=== PATIENT | female | born 1995 | race Caucasian/White ===

== ENCOUNTER 2017-08-21 19:41 | Emergency (ER) ==
[2017-08-21 19:49] VITALS: BP 123/75; TEMP 99.5; BMI 21.2
[2017-08-21] MEDS ORDERED: SODIUM CHLORIDE 1,000 ML IV STA (19:56)
--- NOTE | 2017-08-21 20:00 | ED.PDOC ---
General ED Provider: Dr. TRELL CALLE Chief Complaint: Abdominal Pain Stated Complaint: hAVING RT LOWER ABDOMEN PAIN 3-4 DAYS, GRADUALLY GETTING WORSE , HAS SOME NAUSE TODAY. fEVER AT HOME 102 Time Seen by Physician: 19:58 Mode of Arrival: Walk-In Information Source: Patient, Family Primary Care Provider: DONNA CRANE Nursing and Triage Documentation Reviewed and Agree: Yes Reviewed sepsis parameters & appropriate labs ordered?: Yes System Inflammatory Response Syndrome: Not Applicable Sepsis Protocol: For patient's 13 years and over: Temp is 96.8 and below OR 101 and greater Pulse >90 BPM Resp >20/minute Acutely Altered Mental Status Are patient's symptoms suggestive of a new infection, such as: -Pneumonia -Skin, Soft Tissue -Endocarditis -UTI -Bone, Joint Infection -Implantable Device -Acute Abdominal Infection -Wound Infection -Meningitis -Blood Stream Catheter Infection -Unknown GI Complaint Exam - Abdominal Pain Complaint/Exam Onset: Gradual Symptoms Are: Still present Timing: Constant Initial Severity: Moderate Current Severity: Moderate Location of Pain: RLQ Radiates To: Reports: Back, Flank Character: Reports: Dull, Aching Aggravating: Reports: Movement, Food Alleviating: Reports: None Associated Signs and Symptoms: Reports: Urinary frequency, Nausea, Vomiting. Denies: Diaphoresis, Fever, Cough, Chest pain, Dizziness, Back pain, Constipation, Blood in stool, Dysuria, Decreased urine output, Decreased appetite, Vaginal bleeding, Vaginal discharge, Diarrhea, Sore throat, Decreased activity Related History: Reports: Similar episode : 0 Para: 0 Hx Total # of Abortions (Spontaneous & Elective): 0 AAA Risk Factors: Reports: None Cardiac Risk Factors: Reports: None Ectopic Risk Factors: Reports: None Ovarian Torsion Risk Factors: Reports: None Surgical Obstruction Risk Factors: Reports: None Related Surgical History: Reports: None Patient Rh Status: Unknown Abdominal Findings: Absent: Pulsatile mass, Abdominal distention, Unequal femoral pulses Differential Diagnoses: Appendicitis, UTI Review of Systems - Review Of Systems Constitutional: Reports: Fever Eyes: Reports: No symptoms Ears, Nose, Mouth, Throat: Reports: No symptoms Respiratory: Reports: No symptoms Cardiac: Reports: No symptoms GI: Reports: Abdominal pain : Reports: No symptoms Musculoskeletal: Reports: No symptoms Skin: Reports: No symptoms Neurological: Reports: No symptoms Endocrine: Reports: No symptoms Hematologic/Lymphatic: Reports: No symptoms All Other Systems: Reviewed and Negative Past Medical History - Past Medical History Previously Healthy: Yes Endocrine: Reports: None Cardiovascular: Reports: None Respiratory: Reports: None Hematological: Reports: None Gastrointestinal: Reports: None Genitourinary: Reports: None Neuro/Psych: Reports: None Musculoskeletal: Reports: None Cancer: Reports: None Last Menstrual Period: CURRENT - Surgical History General Surgical History: Reports: None - Family History Family History: Reports: None - Social History Smoking Status: Never smoker Hx Substance Use: No Alcohol Screening: None - Immunizations Tetanus Shot up to Date: Yes Physical Exam - Physical Exam Appearance: Ill-appearing, Thin Eyes: KAITLIN, EOMI, Conjunctiva clear ENT: Ears normal, Nose normal, Oropharynx normal Respiratory: Airway patent, Breath sounds clear, Breath sounds equal, Respirations nonlabored Cardiovascular: RRR, Pulses normal, No rub, No murmur GI/: Soft, Tender Musculoskeletal: Normal strength, ROM intact, No edema, No calf tenderness Skin: Warm, Dry, Normal color Neurological: Sensation intact, Motor intact, Reflexes intact, Cranial nerves intact, Alert, Oriented Psychiatric: Affect appropriate, Mood appropriate Interpretation - Radiology Interpretation Radiology Interpretation By: Radiologist Radiology Results: Positive Exam Interpreted: CT Scan Critical Care Note - Critical Care Note Total Time (mins): 20 Course - Course Hematology/Chemistry: 08/21/17 20:05 08/21/17 20:05 Orders, Labs, Meds: Lab Review 08/21/17 08/21/17 08/21/17 20:05 20:05 20:20 WBC 9.78 RBC 3.88 L Hgb 12.0 Hct 34.6 L MCV 89.2 MCH 30.9 MCHC 34.7 RDW Coeff of Gilberto 12.2 Plt Count 193 Immature Gran % (Auto) 0.3 Neut % (Auto) 67.8 Lymph % (Auto) 24.4 Sutton % (Auto) 6.1 Eos % (Auto) 1.2 Baso % (Auto) 0.2 Immature Gran # (Auto) 0.0 Neut # 6.6 Lymph # 2.4 Sutton # 0.6 Eos # 0.1 Baso # 0.0 Sodium 139 Potassium 3.5 Chloride 105 Carbon Dioxide 23 Anion Gap 14.5 BUN 7 Creatinine 0.70 Estimated GFR (MDRD) 107.00 BUN/Creatinine Ratio 10.00 Glucose 149 H Calcium 9.0 Total Bilirubin 0.3 AST 13 L ALT 10 L Alkaline Phosphatase 57 Total Protein 7.0 Albumin 3.1 L Globulin 3.9 Albumin/Globulin Ratio 0.79 Urine Color Urine Clarity Urine pH Ur Specific Jeremiah Urine Protein Urine Glucose (UA) Urine Ketones Urine Blood Urine Nitrite Urine Bilirubin Urine Urobilinogen Ur Leukocyte Esterase Urine Microscopic RBC Urine Microscopic WBC Ur Squamous Epith Cells Urine Bacteria Urine Mucus Urine Test Negative 08/21/17 20:32 WBC RBC Hgb Hct MCV MCH MCHC RDW Coeff of Gilberto Plt Count Immature Gran % (Auto) Neut % (Auto) Lymph % (Auto) Sutton % (Auto) Eos % (Auto) Baso % (Auto) Immature Gran # (Auto) Neut # Lymph # Sutton # Eos # Baso # Sodium Potassium Chloride Carbon Dioxide Anion Gap BUN Creatinine Estimated GFR (MDRD) BUN/Creatinine Ratio Glucose Calcium Total Bilirubin AST ALT Alkaline Phosphatase Total Protein Albumin Globulin Albumin/Globulin Ratio Urine Color Yellow Urine Clarity Clear Urine pH 6.0 Ur Specific Jeremiah 1.015 Urine Protein Negative Urine Glucose (UA) Negative Urine Ketones Trace Urine Blood 2+ Urine Nitrite Negative Urine Bilirubin Negative Urine Urobilinogen 1.0 Ur Leukocyte Esterase Trace Urine Microscopic RBC 5-10 Urine Microscopic WBC 20-30 Ur Squamous Epith Cells 2-5 Urine Bacteria 3+ Urine Mucus Trace Urine Test Orders Category Date Time Status NPO REMINDER: IMAGING ONCE CARE 08/21/17 19:57 Completed ED IV/MEDIPORT/POWERPORT .ONCE EMERGENCY 08/21/17 19:56 Active CBC W/ AUTO DIFF Stat LAB 08/21/17 20:05 Completed COMPREHENSIVE METABOLIC PANEL Stat LAB 08/21/17 20:05 Completed URINALYSIS C & S IF INDICATED Stat LAB 08/21/17 20:32 Completed URINE CULTURE Stat LAB 08/21/17 20:32 Received URINE Stat LAB 08/21/17 20:20 Completed 0.9 % Sodium Chloride [Saline Flush] MEDS 08/21/17 19:56 Ordered 1 syr IVF PRN PRN Ceftriaxone Sodium [Rocephin] MEDS 08/21/17 21:21 Stat 1 gm IM ONCE STA Lidocaine HCl/Pf [Lidocaine HCl 1% Sdv] MEDS 08/21/17 21:21 Stat 5 ml SUBCUT ONCE STA Sodium Chloride 0.9% [Sodium Chloride] 1,000 ml MEDS 08/21/17 19:56 Active IV 100 mls/hr CT ABDOMEN/PELVIS W/WO CONTRAS Stat RADS 08/21/17 19:56 Completed Medications Generic Name Dose Route Start Last Admin Trade Name Freq PRN Reason Stop Dose Admin Sodium Chloride 1,000 mls @ 100 mls/hr 08/21/17 19:56 08/21/17 20:13 Sodium Chloride IV 08/22/17 05:55 100 mls/hr .Q10H STA Administration Sodium Chloride 1 syr 08/21/17 19:56 08/21/17 20:13 Saline Flush IVF 1 syr PRN PRN Administration To flush IV Vital Signs: Temp Pulse Resp BP Pulse Ox 08/21/17 19:42 99.5 F 115 H 16 123/75 98 Departure - Departure Time of Disposition: 21:22 Disposition: HOME SELF-CARE Discharge Problem: UTI (urinary tract infection) Qualifiers: Urinary tract infection type: acute cystitis Hematuria presence: with hematuria Qualified Code(s): N30.01 - Acute cystitis with hematuria Instructions: Urinary Tract Infection in Women (ED) Condition: Stable Pt referred to PMD for follow-up: Yes Additional Instructions: iNCREASE hYDRATION Tylenol prn Prescriptions: Nitrofurantoin Macrocrystal [Macrodantin] 100 mg PO BID #14 capsule Allergies/Adverse Reactions: Allergies No Known Allergies Allergy (Verified 01/28/15 22:33) Home Medications: Ambulatory Orders Nitrofurantoin Macrocrystal [Macrodantin] 100 mg PO BID #14 capsule 08/21/17 Disposition Discussed With: Patient
--- NOTE | 2017-08-21 21:18 | CT ---
EXAM: CT abdomen pelvis with and without contrast HISTORY: Right lower quadrant pain COMPARISON: CT abdomen pelvis 05/01/2014 TECHNIQUE: Serial axial images of the abdomen pelvis were performed before and after IV contrast was administered. These were obtained from the lung bases through the inferior pelvis. FINDINGS: The lung bases are clear. The liver demonstrates low attenuation right hepatic lesion measuring 0.7 cm in diameter. The gallbl adder is mildly contracted. Spleen is unremarkable. The pancreas is unremarkable. There is a right abnormal area of mixed low attenuation in the right mid kidney. Left kidney is normal. The stomach is normal. Small bowel in the abdomen pelvis is unremarkable. The colon is unremarkable. The uterus is unremar kable. There is a crenulated right ovarian cyst. There is minimal free fluid the pelvis. The osseo us structures are unremarkable. IMPRESSION: 1. Focal area of abnormal contrast enhancement in the mid to upper right renal cortex suggestive of pyelonephritis. No focal fluid collection is identified. 2. Low attenuation right hepatic lesion is nonspecific. 3. Nonspecific minimal free fluid the pelvis.
[2017-08-21] MEDS ORDERED: LIDOCAINE HCL 1% SDV SUBCUT STA (21:21)
[2017-08-21] MEDS ORDERED: ROCEPHIN IM STA (21:21)
== END 2017-08-21 21:55 | disposition home or self-care (01) ==
LOC: ED 19:41
DX: N30.01 Acute cystitis with hematuria (principal)
CPT/HCPCS: 36415; 80053; 81001; 81025; 85025; 87086; 87186; 96360; 96361; 96372; 99283

== ENCOUNTER 2018-02-04 15:19 | Outpatient (CLI) | END 2018-02-04 15:20 | disposition home or self-care (01) | LOC: LAB 15:19 | PROVIDERS: ATTEND Family Medicine | DX: R50.9 Fever, unspecified (principal) | CPT/HCPCS: 36415; 80053; 85007; 85025; 87651 ==